=== PATIENT | male | born 1960 | race Caucasian/White ===

== ENCOUNTER 2016-12-06 12:25 | Emergency (ER) | payer OTHER ==
[2016-12-06] MEDS ORDERED: 0.9 % SODIUM CHLORIDE 500 ML IV ONE ×4 (12:35→14:38)
--- NOTE | 2016-12-06 12:35 | ED Physician Documentation ---
General Adult - HISTORIAN Historian: patient - HPI Stated Complaint: hyperglycemia Chief Complaint: General Adult Onset: hours Timing: still present Severity: moderate Further Comments: yes (Pt is a 56 yo male, recently dx'd with DM, who has not started DM meds yet. Pt was feeling lightheaded and measured his glucose on his 's glucometer and found glucose>500. Pt had lab work with pcp on which showed glucose = 408 and Hgb A1c= 13.9. No n/v.) - ROS CONST: weakness, other (malaise) EYES/ENT: none CVS/RESP: none GI/: other (frequent urination) MS/SKIN/LYMPH: none - PAST HX Past History: other (GERD, Psych illness on Abilify, DM (recent dx)) Allergies/Adverse Reactions: Allergies Allergy/AdvReac Type Severity Reaction Status Date / Time haloperidol [From Haldol] AdvReac Tremors Verified 12/06/16 13:01 haloperidol lactate AdvReac Tremors Verified 12/06/16 13:01 [From Haldol] Home Medications: Ambulatory Orders Medication Instructions Recorded Aripiprazole [Abilify] 15 mg PO QDAY 12/06/16 Metformin HCl [Glucophage] 500 mg PO Q12H #60 tablet 12/06/16 Omeprazole [Prilosec] 20 mg PO QDAY 12/06/16 - SOCIAL HX Smoking History: non-smoker - FAMILY HX Family History: No - REVIEWED ASSESSMENTS Nursing Assessment Reviewed: Yes Vitals Reviewed: Yes Progress - Progress Progress: Glucose = 702 at 1330 Insulin R 10 units IV NS 1 L IVF KCl 20 mEq po x 1 Glucose = 404 at 1400 Glucose = 291 at 1430 Glucose = 290 at 1500 Insulin R 2 units IV Glucose = 245 at 1530 NS 500 cc IVF Insulin R 2 units IV Glucose = 225 at 1620 Glucose = 185 at 1645 Pt feeling well. Rx Metformin 500 mg po bid f/u pcp next available appointment. General Adult Physical Exam - PHYSICAL EXAM GENERAL APPEARANCE: mild distress EENT: pharynx normal NECK: normal inspection, supple RESPIRATORY: no resp distress, chest non-tender, breath sounds normal CVS: reg rate & rhythm, heart sounds normal, equal pulses ABDOMEN: soft, no organomegaly, normal bowel sounds BACK: normal inspection SKIN: warm/dry, normal color EXTREMITIES: non-tender, normal range of motion, no evidence of injury NEURO: oriented X3, motor nml, sensation nml Discharge Clincal Impression: Hyperglycemia, Diabetes Prescriptions: Metformin HCl [Glucophage] 500 mg PO Q12H #60 tablet Referrals: Primary Doctor,No [REFERRING] - 2 Days Home Medications: Ambulatory Orders Aripiprazole [Abilify] 15 mg PO QDAY 12/06/16 Metformin HCl [Glucophage] 500 mg PO Q12H #60 tablet 12/06/16 Omeprazole [Prilosec] 20 mg PO QDAY 12/06/16 Condition: Stable Disposition: 01 HOME, SELF-CARE Decision to Admit: NO Decision Time: 16:38
[2016-12-06] MEDS ORDERED: 0.9 % SODIUM CHLORIDE 1,000 ML IV ONE (12:43)
[2016-12-06 12:44] LABS: BASOPHILS % 0.5 (0.0-1.5); EOSINOPHILS % 2.2 % (0.0-6.8); MEAN CORPUSCULAR HEMOGLOBIN 31.6 pg (28.0-34.0); MEAN CORPUSCULAR VOLUME 92.9 fl (80.0-100.0); MONOCYTES % 3.9 % (0.0-11.0); NEUTROPHILS # 4.3 # k/uL (1.4-7.7)
[2016-12-06 12:58] VITALS: BP 113/71
[2016-12-06 13:03] LABS: eGFR (African) > 60; eGFR (Non-African) > 60
[2016-12-06] MEDS ORDERED: INSULIN REGULAR, HUMAN 100 UNIT/ML 3ML VIAL IV ONE ×3 (13:15→16:15)
[2016-12-06 13:21] LABS: APPEARANCE,URINE Clear (CLEAR); COLOR,URINE Yellow (YELLOW); OCCULT BLOOD,URINE Negative (NEGATIVE); PH URINE 5.5 (5.0 - 8.0); UROBILINOGEN URINE 0.2 Eu (0.2-1.0)
[2016-12-06] MEDS ORDERED: POTASSIUM CHLORIDE 20 MEQ TABLET.ER PO ONE (14:43)
== END 2016-12-06 16:55 | disposition home or self-care (01) ==
LOC: ED 12:25
DX: E11.65 Type 2 diabetes mellitus with hyperglycemia (principal)
CPT/HCPCS: 80053; 81002; 85025; A9270; J1815; J7060; 96361; 96374; 96376; 99283; S1016